=== PATIENT | male | born 1955 ===

== ENCOUNTER 2017-05-14 15:11 | Day surgery (SDC) | payer OTHER ==
[2017-05-14] MEDS ORDERED: Lidocaine 2% Inj (20ml) ONE ×2 (15:22→17:47)
[2017-05-14] MEDS ORDERED: Midazolam 2 MG/2 ML VIAL ONE ×2 (15:23→16:05)
[2017-05-14] MEDS ORDERED: Iodixanol 320 MG/ML 200 ML BOTTLE IV ONE (15:25)
[2017-05-14] MEDS ORDERED: Nitroglycerin 50mg in D5W 0 MG/0 ML BOTTLE IV ONE (15:25)
[2017-05-14] MEDS ORDERED: Iodixanol 320 MG/ML 100 ML BOTTLE IV ONE (15:25)
[2017-05-14] MEDS ORDERED: Iohexol 350mgl/ml 50 ML ONE (15:25)
[2017-05-14] MEDS ORDERED: DiphenhydrAMINE 50 mg/ml Inj ONE (17:23)
[2017-05-14] MEDS ORDERED: Famotidine 20mg/50ml 20 MG/50 ML BAG IVPB ONE (17:23)
[2017-05-14 18:42] VITALS: TEMP 98.3
[2017-05-14] MEDS ORDERED: Sodium Chloride 0.9% 500 ML IV SCH (19:00)
[2017-05-14 19:38] VITALS: BP 137/73; PULSE 84; RESP 18
--- NOTE | 2017-05-14 21:49 | CARD ---
APPROVED REPORT EKG Measurement Heart [id number] <Conclusion> Atrial fibrillation Prolonged QT Abnormal ECG
--- NOTE | 2017-05-15 00:48 | CARDCATH ---
PROCEDURE DATE: 05/14/2017 PROCEDURES: 1. Percutaneous coronary intervention and drug-eluting stent placement of the left circumflex coronary artery. 2. Radiological supervision and radiological interpretation of the coronary angiography, balloon angioplasty, and drug-eluting stent placement. REFERRING PHYSICIAN: Micki Jurado MD PERFORMING PHYSICIAN: Cordell Claros MD CLINICAL INDICATIONS: 1. Non-ST elevation myocardial infarction. 2. Hypertension. 3. Diabetes. 4. Hyperlipidemia. 5. Coronary artery disease. 6. Atrial fibrillation. 7. Chronic renal failure, on hemodialysis. PROCEDURE: After informed consent, the patient was prepped and draped in the usual sterile fashion. A 2% lidocaine was given in the right groin for local anesthesia. Using micropuncture technique, 6-Mexican sheath was introduced into the right common femoral artery. The patient was preloaded with aspirin, Plavix, and IV heparin. ACT was maintained above 250. XBLAD 3.5, 6-Mexican guide catheter was engaged into left main coronary artery. Contrast injected and left coronary angiogram was performed. Left coronary angiogram has revealed tight calcific long mid 95% stenosis in the left circumflex coronary artery. There was a ALEKSANDAR-2 flow noted beyond the lesion. The lesion was threaded using run through coronary wire. Predilated using 2.5 x 25 compliant balloon and 2.75 x 12 noncompliant balloon. Using the guide liner 3.5 x 33 Xience Alpine drug-eluting stent deployed with excellent final angiographic results and brisk ALEKSANDAR-3 flow. CONCLUSION: Successful balloon angioplasty and drug-eluting stent placement of the left circumflex coronary artery. The patient will be transferred to [facility] for further observation. Cordell Claros MD
== END 2017-05-14 20:40 | disposition short-term general hospital (02) ==
LOC: CATH 15:11 → 2RSO 18:20 → CATH 20:40
PROVIDERS: ATTEND Internal Medicine Cardiovascular Disease
DX: I21.4 Non-ST elevation (NSTEMI) myocardial infarction (principal); I25.10 Atherosclerotic heart disease of native coronary artery without angina pectoris; N18.6 End stage renal disease; I12.0 Hypertensive chronic kidney disease with stage 5 chronic kidney disease or end stage renal disease; E11.22 Type 2 diabetes mellitus with diabetic chronic kidney disease; E78.5 Hyperlipidemia, unspecified; I48.91 Unspecified atrial fibrillation; Z99.2 Dependence on renal dialysis; Z79.4 Long term (current) use of insulin
CPT/HCPCS: 85175; 93005; 99152; 99153; C1725 ×2; C1760; C1769 ×2; C1874; C1887 ×2; C1894; C9600; J1200; J1644 ×2; J2250; J2930; J3010; J7040 ×2; Q9967